=== PATIENT | male | born 1980 | race Caucasian/White ===

== ENCOUNTER 2018-02-26 12:24 | Emergency (ER) | payer OTHER ==
[~2018-02-26] VITALS: Ht 193 cm; Wt 136.1 kg
[2018-02-26 12:26] VITALS: BP 129/93
[2018-02-26] MEDS ORDERED: KETOROLAC 60 MG/2 ML VIAL IM ONE (12:35)
--- NOTE | 2018-02-26 12:45 | NUR ---
37M BIB SELF WITH C/O 8/10 BILATERAL FOOT PAIN AND LEFT WRIST PAIN FROM CHRONIC GOUT. +REDNESS, +SWELLING. PT DENIES ANY RECENT INJURY. AAOX4 WITH EVEN AND STEADY GAIT; LUNGS CLEAR BL; HR EVEN AND REGULAR; PT DENIES ANY FEVER, CP, SOB, OR COUGH AT THIS TIME; VSS; PATIENT POSITIONED FOR COMFORT; HOB ELEVATED; BED DOWN. ER MD MADE AWARE OF PT STATUS.
--- NOTE | 2018-02-26 13:11 | NUR ---
er md red by bedside examining pt
[2018-02-26 13:49] VITALS: BP 125/91
--- NOTE | 2018-02-26 13:49 | NUR ---
Patient discharged with v/s stable. Written and verbal after care instructions given and explained. Patient alert, oriented and verbalized understanding of instructions. Wheel Chair Assisted with to home. All questions addressed prior to discharge. ID band removed. Patient advised to follow up with PMD. Rx of prednisone and norco given. Patient educated on indication of medication including possible reaction and side effects. Opportunity to ask questions provided and answered.
== END 2018-02-26 13:49 | disposition home or self-care (01) ==
LOC: MED 12:24
DX: M10.071 Idiopathic gout, right ankle and foot (principal); M10.032 Idiopathic gout, left wrist
CPT/HCPCS: 96372; 99283; J1885